=== PATIENT | female | born 1980 | race Caucasian/White ===

== ENCOUNTER → 2018-01-20 08:33 | Outpatient (CLI) | payer OTHER, MEDICAID, SELFPAY ==
[2018-01-20 09:15] LABS: Add Manual Diff / Slide Review NO; Basophils Percent Auto 0.4 % (0-2); Eosinophils Percent Auto 1.4 % (2-4); Hematocrit 41.7 % (36-46); Lymphocytes Percent Auto 27.7 % (25-40); Mean Corpuscular HGB Conc 33.7 % (30-36); Mean Corpuscular Volume 80.3 fL (80-100); Monocytes Percent Auto 10.1 % (3-14); Neutrophils Absolute Auto 3100 /uL (3000-5900); Neutrophils Percent Auto 60.4 % (50-75); Platelet Count 243 X10^3/uL (150-400); Red Blood Cell Count 5.19 X10^6/uL (4.0-5.2); Red Cell Distribution Width 12.6 % (11.6-14.8); White Blood Cell Count 5.1 X10^3/uL (4.5-11.0)
[2018-01-20 09:54] LABS: Alanine Aminotransferase 30 IU/L (9-52); Albumin 4.5 g/dL (3.5-5.0); Albumin Globulin Ratio 1.5 (1.0-2.8); Alkaline Phosphatase 47 U/L (38-126); Aspartate Aminotransferase 30 IU/L (14-36); BUN Creatinine Ratio 18.8 (6-22); Blood Urea Nitrogen 15 mg/dL (7-17); Calcium 9.8 mg/dL (8.4-10.2); Carbon Dioxide 25 mmol/L (22-32); Chloride 103 mmol/L (98-107); Cholesterol 170 mg/dL (140-199); Estimated Glomerular Filt Rate > 60.0 mL/min (>60); Globulin 3.1 g/dL (1.7-4.1); Glucose 85 mg/dL (70-100); HDL Cholesterol 65 mg/dL (40-60); HEMOLYSIS 16 (0-50); LDL Cholesterol Calculated 93 mg/dL (<100); Potassium 4.2 mmol/L (3.4-5.1); Sodium 143 mmol/L (137-145); Total Protein 7.6 g/dL (6.3-8.2); Triglycerides 61 mg/dL (35-150)
[2018-01-20 10:09] LABS: Free T4, Direct Thyroxine 1.38 ng/dL (0.78-2.19)
[2018-01-20 10:23] LABS: Thyroid Stimulating Hormone 1.81 uIU/mL (0.47-4.68)
== END ==
PROVIDERS: Family Provider Family Medicine; PCP Family Medicine
DX: R53.83 Other fatigue (principal)
CPT/HCPCS: 36415; 80053; 80061; 84439; 84443; 85025

== ENCOUNTER → 2018-01-25 08:45 | Outpatient (CLI) | payer OTHER, MEDICAID, SELFPAY ==
[2018-01-25 10:46] LABS: Follicle Stimulating Hormone 3.55 mIU/mL
[2018-01-25 10:48] LABS: Luteinizing Hormone 2.94 mIU/mL
[2018-01-26 18:04] LABS: Inhibin B < 10 pg/mL
== END ==
PROVIDERS: Family Provider Family Medicine; PCP Family Medicine
DX: N91.5 Oligomenorrhea, unspecified (principal)
CPT/HCPCS: 36415; 82397; 83001; 83002

== ENCOUNTER 2018-06-22 14:56 | Emergency (ER) | payer OTHER, MEDICAID, SELFPAY ==
[2018-06-22 15:01] VITALS: BP 131/73; PULSE 88; RESP 15; TEMP 36.9; O2SAT 100; BMI 19.0
--- NOTE | 2018-06-22 15:39 | ED.ANXIETY ---
HPI - Anxiety <DILSHAD Gresham - Last Filed: 06/22/18 18:04> General Chief Complaint: Anxiety Stated Complaint: panic attack Time Seen by Provider: 06/22/18 15:25 Source: patient Mode of arrival: ambulatory Limitations: no limitations History of Present Illness HPI narrative: pt here saying she is under a lot of stress at home, going thru divorce with custody [place] and her spouse has issues with drinking, feels overwhelmed, trouble sleeping, trouble eating, doesn't feel like working out even though going to the gym helps with stress, gets angry easy, and gets upset over things that would normally not upset her, took x2 of her mom's ativan, which helped, denies any issues with depression, suicide thoughts, harm to self or others, denies any drinking or substance abuse, said she called her pcp and he told her to come to ER for meds to help her MD complaint: anxiety Onset (ago): month(s) (few) Symptoms: other Quality: constant History of similar episodes: No Provoking factors: emotional stress Relieving factors: medication Exacerbating factors: other Associated symptoms: denies other symptoms Related Data Home Medications Medication Instructions Recorded Confirmed Little Yellow Pill 1 dose PO DIRECTED 06/22/18 06/23/18 Probiotic 1 cap PO DAILY 06/22/18 06/23/18 Vitamin D3 1 cap PO DAILY 06/22/18 06/23/18 amino acids [Amino Acid] 1 cap PO DAILY 06/22/18 06/23/18 Previous Rx's Medication Instructions Recorded lorazepam [Ativan] 0.25 mg PO BID-TID PRN #20 tab 06/22/18 Allergies Allergy/AdvReac Type Severity Reaction Status Date / Time Sulfa (Sulfonamide Allergy Mild Verified 06/23/18 15:30 Antibiotics) [SULFA (SULFONAMIDE ANTIBIOTICS)] sulfamethoxazole Allergy Mild Verified 06/23/18 15:30 [SULFAMETHOXAZOLE] trimethoprim [TRIMETHOPRIM] Allergy Mild Verified 06/23/18 15:30 Review of Systems <DILSHAD Gresham - Last Filed: 06/22/18 18:04> Review of Systems All systems reviewed & are unremarkable except as noted in HPI and below Constitutional Reports as per HPI Eyes Denies change in vision, Denies eye discharge, Denies irritation and Denies loss of vision ENT Ears, Nose, Mouth, and Throat: Denies change in voice, Denies neck pain and Denies sore throat Cardiovascular Denies chest pain, Denies irregular heart rhythm, Denies lightheadedness, Denies palpitations, Denies dyspnea, Denies dyspnea on exertion and Denies orthopnea Respiratory Denies cough, Denies dyspnea, Denies dyspnea on exertion and Denies wheezing Gastrointestinal Gastrointestinal: Denies abdominal pain, Denies change in bowel habits, Denies diarrhea, Denies nausea and Denies vomiting Genitourinary Denies hematuria, Denies flank pain, Denies urinary incontinence and Denies urinary urgency Musculoskeletal Denies neck pain Integumentary/Breasts Denies pruritus, Denies erythema, Denies rash and Denies wounds Neurologic Reports behavioral changes, Denies confusion and Denies loss of vision Psychiatric Reports abnormal sleep pattern, Reports anxiety, Reports behavioral changes, Reports change in appetite, Denies confusion, Denies depression, Reports difficulty concentrating, Reports irritability, Reports mood swings, Reports panic attacks, Denies homicidal ideation and Denies suicidal ideation Endocrine Denies palpitations Hematologic/Lymphatic Denies easy bruising Allergic/Immunologic Denies wheezing Exam <DILSHAD Gresham - Last Filed: 06/22/18 18:04> Initial Vital Signs Initial Vital Signs: Vital Signs Temperature 98.5 F 06/22/18 15:01 Pulse Rate 88 06/22/18 15:01 Respiratory Rate 15 06/22/18 15:01 Blood Pressure 131/73 06/22/18 15:01 Pulse Oximetry 100 06/22/18 15:01 Const General: cooperative, healthy appearing, comfortable, well developed and well groomed Nutritional Appearance: average body habitus Orientation: alert, awake and oriented x3 [facility] Head: normal to inspection and normocephalic Ears: hearing grossly normal bilaterally, external ears normal, TM's normal bilaterally and mastoids normal Nose: external nose normal and nares normal Face and sinus: normal facial exam, sinuses nontender and face symmetric Mouth: oral mucosae normal, lip normal, tongue normal, oropharynx normal and moist mucous membranes Teeth and gingiva: dentition normal and gingiva normal Throat: posterior oropharynx normal, tonsils normal and uvula midline Eyes General: appearance normal, both eyes and all related structures Visual Romero: normal visual romero by confrontation Eyelids: eyelids normal Conjunctivae: conjunctivae normal Sclera: sclerae normal Pupils: PERRL EOM: EOM intact bilaterally Neck Neck: normal visual inspection, full ROM, no meningeal signs, trachea midline, supple and No lymphadenopathy Chest Chest: normal inspection of the chest Resp Effort & Inspection: normal respiratory effort and able to speak in complete sentences Auscultation: clear to auscultation bilaterally Cardio Rate: regular rate Rhythm: regular rhythm Heart Sounds: S1 normal and S2 normal Back/Spine/Pelvis Cervical Spine: cervical ROM normal Thoracic/Lumbar Spine: thoraco-lumbar ROM normal Skin General: no rashes or lesions noted, elasticity normal, turgor normal and dry skin Neuro General: alert, awake, oriented x3 and meningeal signs present Cognition: normal cognition Speech: speech normal Gait: normal gait Motor: muscle tone normal throughout Sensory Exam: no sensory deficits noted Extrem General: normal to inspection and full ROM Psych Appearance: grossly normal and well kempt Mental Status: mental status grossly normal Speech and Movement: speech and movement normal Mood: congruent mood Affect: normal affect Attitude: cooperative Thought Process: normal Thought Content: normal Judgment: judgment good <Jess Stephens DO - Last Filed: 06/23/18 21:22> Initial Vital Signs Initial Vital Signs: Vital Signs Temperature 98.5 F 06/22/18 15:01 Pulse Rate 88 06/22/18 15:01 Respiratory Rate 15 06/22/18 15:01 Blood Pressure 131/73 06/22/18 15:01 Pulse Oximetry 100 06/22/18 15:01 Course <DILSHAD Gresham - Last Filed: 06/22/18 18:04> Course Narrative: tx options discussed and pt would like to try something for anxiety 1635 spoke to pt's pcp, Dr Reyes, and he liked my current plan of care, and said pt has appt with him at 1530 tomorrow Orders Ordered: Discontinued Medications Lorazepam (Ativan) 1 mg IV NOW ONE Stop: 06/22/18 16:09 Last Admin: 06/22/18 16:27 Dose: 1 mg Vital Signs - 8 hr 06/22/18 15:01 06/22/18 15:43 06/22/18 16:28 Temperature 98.5 F Pulse Rate 88 82 81 Respiratory Rate 15 16 16 Blood Pressure 131/73 Blood Pressure [Right Arm] 124/81 121/67 Pulse Oximetry 100 100 100 06/22/18 17:05 Temperature Pulse Rate 92 H Respiratory Rate 22 Blood Pressure 112/62 Blood Pressure [Right Arm] Pulse Oximetry 99 <Jess Stephens DO - Last Filed: 06/23/18 21:22> Orders Ordered: Discontinued Medications Lorazepam (Ativan) 1 mg IV NOW ONE Stop: 06/22/18 16:09 Last Admin: 06/22/18 16:27 Dose: 1 mg Vital Signs - 8 hr 06/22/18 15:01 06/22/18 15:43 06/22/18 16:28 Temperature 98.5 F Pulse Rate 88 82 81 Respiratory Rate 15 16 16 Blood Pressure 131/73 Blood Pressure [Right Arm] 124/81 121/67 Pulse Oximetry 100 100 100 06/22/18 17:05 Temperature Pulse Rate 92 H Respiratory Rate 22 Blood Pressure 112/62 Blood Pressure [Right Arm] Pulse Oximetry 99 MDM - Anxiety <DILSHAD Gresham - Last Filed: 06/22/18 18:04> Differential Diagnosis Differential diagnosis: Likely hyperventilation, panic disorder, acute anxiety and other Lab Data Attestation: I reviewed the patient's lab results. Result diagrams: 06/22/18 15:50 06/22/18 15:50 Lab Results 06/22/18 06/22/18 Range/Units 15:50 15:50 WBC 7.8 (4.5-11.0) X10^3/uL RBC 5.11 (4.0-5.2) X10^6/uL Hgb 13.8 (12.0-16.0) g/dL Hct 40.9 (36-46) % MCV 80.1 (80-100) fL MCH 26.9 (26-34) PG MCHC 33.6 (30-36) % RDW 13.7 (11.6-14.8) % Plt Count 263 (150-400) X10^3/uL Neut % (Auto) 73.1 (50-75) % Lymph % (Auto) 20.4 L (25-40) % Saunders % (Auto) 5.4 (3-14) % Eos % (Auto) 0.7 L (2-4) % Baso % (Auto) 0.4 (0-2) % Neut # (Auto) 5700 (1836-0130) /uL Sodium 142 (137-145) mmol/L Potassium 4.3 (3.4-5.1) mmol/L Chloride 107 (98-107) mmol/L Carbon Dioxide 23 (22-32) mmol/L BUN 12 (7-17) mg/dL Creatinine 0.60 (0.52-1.04) mg/dL Estimated GFR > 60.0 (>60) mL/min BUN/Creatinine Ratio 20.0 (6-22) Glucose 86 (70-100) mg/dL Calcium 9.1 (8.4-10.2) mg/dL Total Bilirubin 0.4 (0.2-1.3) mg/dL AST 25 (14-36) IU/L ALT 25 (9-52) IU/L Alkaline Phosphatase 50 (38-126) U/L Total Creatine Kinase 41 (30-135) U/L CK-MB (CK-2) TNP CK-MB (CK-2) Rel Index TNP Troponin I < 0.012 (0.01-0.034) ng/mL Total Protein 7.4 (6.3-8.2) g/dL Albumin 4.5 (3.5-5.0) g/dL Globulin 2.9 (1.7-4.1) g/dL Albumin/Globulin Ratio 1.6 (1.0-2.8) Lipase 85 (23-300) U/L <Jess Stephens, DO - Last Filed: 06/23/18 21:22> Lab Data Lab Results 06/22/18 06/22/18 Range/Units 15:50 15:50 WBC 7.8 (4.5-11.0) X10^3/uL RBC 5.11 (4.0-5.2) X10^6/uL Hgb 13.8 (12.0-16.0) g/dL Hct 40.9 (36-46) % MCV 80.1 (80-100) fL MCH 26.9 (26-34) PG MCHC 33.6 (30-36) % RDW 13.7 (11.6-14.8) % Plt Count 263 (150-400) X10^3/uL Neut % (Auto) 73.1 (50-75) % Lymph % (Auto) 20.4 L (25-40) % Saunders % (Auto) 5.4 (3-14) % Eos % (Auto) 0.7 L (2-4) % Baso % (Auto) 0.4 (0-2) % Neut # (Auto) 5700 (3414-6467) /uL Sodium 142 (137-145) mmol/L Potassium 4.3 (3.4-5.1) mmol/L Chloride 107 (98-107) mmol/L Carbon Dioxide 23 (22-32) mmol/L BUN 12 (7-17) mg/dL Creatinine 0.60 (0.52-1.04) mg/dL Estimated GFR > 60.0 (>60) mL/min BUN/Creatinine Ratio 20.0 (6-22) Glucose 86 (70-100) mg/dL Calcium 9.1 (8.4-10.2) mg/dL Total Bilirubin 0.4 (0.2-1.3) mg/dL AST 25 (14-36) IU/L ALT 25 (9-52) IU/L Alkaline Phosphatase 50 (38-126) U/L Total Creatine Kinase 41 (30-135) U/L CK-MB (CK-2) TNP CK-MB (CK-2) Rel Index TNP Troponin I < 0.012 (0.01-0.034) ng/mL Total Protein 7.4 (6.3-8.2) g/dL Albumin 4.5 (3.5-5.0) g/dL Globulin 2.9 (1.7-4.1) g/dL Albumin/Globulin Ratio 1.6 (1.0-2.8) Lipase 85 (23-300) U/L Discharge Plan Departure Patient Disposition: Home Clinical Impression: Acute anxiety Discharge Date/Time: 06/22/18 17:06 Interventions: ED Discharge Assessment Last Done: 06/22/18 17:05 Instructions: DI for Anxiety -- Adult Prescriptions: New lorazepam [Ativan] 0.5 mg tablet 0.25 mg PO BID-TID PRN (Reason: anxiety) Qty: 20 RF: 0 No Action amino acids [Amino Acid] Capsule 1 cap PO DAILY RF: 0 Little Yellow Pill 1 dose PO DIRECTED RF: 0 Probiotic 1 cap PO DAILY RF: 0 Vitamin D3 1 cap PO DAILY RF: 0 Referrals: Ted Reyes MD [Primary Care Provider] - (Tomorrow as scheduled at 1530) <Jess Stephens DO - Last Filed: 06/23/18 21:22> Cosign ED Attending Cosignature Attestation: I was immediately available in the department for consultation. This documentation has been reviewed and I agree with assessment and plan. Supervised by Jess Stephens DO
--- NOTE | 2018-06-22 15:42 | PC.NURSE ---
states, has been going thru step child custody for months, intermittent anxiety attact wth bilateral arms numbness, feeling tired for months, not sleeping, denies fever,chills,cough,vomiting or diarrhea. cooperative and tearful, mother at bs.
[2018-06-22 15:43] VITALS: BP 124/81; PULSE 82; RESP 16; O2SAT 100
--- NOTE | 2018-06-22 15:55 | DI.RAD.S_ITS ---
PROCEDURE: XR CHEST 1V INDICATIONS: severe anxiety, hx of svt TECHNIQUE: One view of the chest was acquired. COMPARISON: None. FINDINGS: Surgical changes and devices: None. Lungs and pleura: No pleural effusions or pneumothorax. Lungs are clear. Mediastinum: Mediastinal contours appear normal. Heart size is normal. Bones and chest wall: No suspicious bony lesions. Overlying soft tissues appear unremarkable. IMPRESSION: No acute pulmonary process. Dictated by: Twyla Valle M.D. on 06/22/2018 at 16:34 Approved by: Twyla Valle M.D. on 06/22/2018 at 16:35
[2018-06-22 16:00] LABS: Add Manual Diff / Slide Review NO; Basophils Percent Auto 0.4 % (0-2); Eosinophils Percent Auto 0.7 % (2-4); Hematocrit 40.9 % (36-46); Hemoglobin 13.8 g/dL (12.0-16.0); Lymphocytes Percent Auto 20.4 % (25-40); Mean Corpuscular HGB Conc 33.6 % (30-36); Mean Corpuscular Hemoglobin 26.9 PG (26-34); Mean Corpuscular Volume 80.1 fL (80-100); Monocytes Percent Auto 5.4 % (3-14); Neutrophils Absolute Auto 5700 /uL (3000-5900); Neutrophils Percent Auto 73.1 % (50-75); Platelet Count 263 X10^3/uL (150-400); Red Blood Cell Count 5.11 X10^6/uL (4.0-5.2); Red Cell Distribution Width 13.7 % (11.6-14.8); White Blood Cell Count 7.8 X10^3/uL (4.5-11.0)
[2018-06-22 16:08] LABS: Alanine Aminotransferase 25 IU/L (9-52); Albumin 4.5 g/dL (3.5-5.0); Albumin Globulin Ratio 1.6 (1.0-2.8); Alkaline Phosphatase 50 U/L (38-126); Aspartate Aminotransferase 25 IU/L (14-36); Bilirubin Total 0.4 mg/dL (0.2-1.3); Blood Urea Nitrogen 12 mg/dL (7-17); Calcium 9.1 mg/dL (8.4-10.2); Carbon Dioxide 23 mmol/L (22-32); Chloride 107 mmol/L (98-107); Estimated Glomerular Filt Rate > 60.0 mL/min (>60); Globulin 2.9 g/dL (1.7-4.1); Glucose 86 mg/dL (70-100); HEMOLYSIS < 15 (0-50); Lipase 85 U/L (23-300); Potassium 4.3 mmol/L (3.4-5.1); Sodium 142 mmol/L (137-145); Total Protein 7.4 g/dL (6.3-8.2)
[2018-06-22 16:09] LABS: Creatine Kinase 41 U/L (30-135)
[2018-06-22 16:20] LABS: Troponin I < 0.012 ng/mL (0.01-0.034)
[2018-06-22] MEDS: LORazepam 2 MG/ML SYRINGE 1 MG IV (16:27)
[2018-06-22 16:28] VITALS: BP 121/67; PULSE 81; RESP 16; O2SAT 100
[2018-06-22 17:05] VITALS: BP 112/62; PULSE 92; RESP 22; O2SAT 99
== END 2018-06-22 17:06 | disposition home or self-care (01) ==
PROVIDERS: Emergency Provider Nurse Practitioner; Family Provider Family Medicine; PCP Family Medicine
DX: F41.9 Anxiety disorder, unspecified (principal)
CPT/HCPCS: 36591; 71045; 80053; 82550; 83690; 84484; 85025; 93005; 96374; 99282; 99285; J2060

== ENCOUNTER → 2019-01-27 11:30 | Outpatient (CLI) | payer OTHER, MEDICAID, SELFPAY ==
[2019-01-27 13:15] LABS: Thyroid Stimulating Hormone 0.81 uIU/mL (0.47-4.68)
[2019-01-27 15:05] LABS: Follicle Stimulating Hormone 3.19 mIU/mL; Luteinizing Hormone 1.03 mIU/mL
== END ==
PROVIDERS: PCP Family Medicine
DX: N97.0 Female infertility associated with anovulation (principal)
CPT/HCPCS: 36415; 82397; 83001; 83002; 84443

== ENCOUNTER → 2019-09-26 09:14 | Outpatient (CLI) | payer OTHER, MEDICAID, SELFPAY ==
[2019-09-26 10:34] LABS: Free T3, Triiodothyronine Free 3.31 pg/mL (2.77-5.27); Free T4, Direct Thyroxine 0.99 ng/dL (0.78-2.19)
[2019-09-26 10:48] LABS: Thyroid Stimulating Hormone 1.41 uIU/mL (0.47-4.68)
== END ==
PROVIDERS: PCP Family Medicine; Referring Provider Family Medicine; Visit Provider Family Medicine
DX: R79.89 Other specified abnormal findings of blood chemistry (principal)
CPT/HCPCS: 36415; 84439; 84443; 84481

== ENCOUNTER → 2020-05-11 11:24 | Outpatient (CLI) | payer OTHER, MEDICAID, SELFPAY ==
--- NOTE | 2020-05-11 | DI.MG.S_ITS ---
BILATERAL DIGITAL SCREENING MAMMOGRAM 3D/2D WITH CAD WITH AUGMENTATION: 05/11/2020 CLINICAL: Patient presents for routine screening. S/P bilateral augmentation. Family history of breast cancer. Comparison is made to exam dated: 02/22/2014 [facility]. The tissue of both breasts is heterogeneously dense. This may lower the sensitivity of mammography. Current study was also evaluated with a Computer Aided Detection (CAD) system. Bilateral breast implants are present. No significant masses, calcifications, or other findings are seen in either breast. There has been no significant interval change. IMPRESSION: NEGATIVE There is no mammographic evidence of malignancy. A 1 year screening mammogram is recommended. This exam was interpreted at Station ID: [id number]. NOTE: For mammograms, a report in lay terms will be sent to the patient. Approximately 15% of breast malignancies will not be visualized mammographically. In the management of a palpable breast mass, a negative mammogram must not discourage biopsy of a clinically suspicious lesion. Electronically Signed By: Ethan arechiga/prateek:05/11/2020 11:50:53 letter sent: Normal Exam ACR BI-RADS Category 1: Negative 3341F
== END ==
PROVIDERS: PCP Family Medicine; Referring Provider Family Medicine; Visit Provider Family Medicine
DX: Z12.31 Encounter for screening mammogram for malignant neoplasm of breast (principal); Z80.3 Family history of malignant neoplasm of breast; Z98.82 Breast implant status
CPT/HCPCS: 77063; 77067

== ENCOUNTER → 2021-01-28 07:57 | Outpatient (CLI) | payer OTHER, MEDICAID, SELFPAY ==
[2021-01-28 08:48] LABS: Add Manual Diff / Slide Review NO; Basophils Absolute Auto 0 /uL (0-100); Basophils Percent Auto 0.4 % (0-2); Eosinophils Absolute Auto 100 /uL (0-450); Eosinophils Percent Auto 2.5 % (2-4); Hemoglobin 13.8 g/dL (12.0-16.0); Lymphocytes Absolute Auto 1200 /uL (1100-4500); Lymphocytes Percent Auto 23.1 % (25-40); Mean Corpuscular HGB Conc 32.9 % (30-36); Mean Corpuscular Hemoglobin 26.3 PG (26-34); Mean Corpuscular Volume 80.1 fL (80-100); Monocytes Absolute Auto 500 /uL (0-900); Neutrophils Absolute Auto 3300 /uL (1500-7000); Platelet Count 317 X10^3/uL (150-400); Red Blood Cell Count 5.24 X10^6/uL (4.0-5.2); Red Cell Distribution Width 14.2 % (11.6-14.8); White Blood Cell Count 5.2 X10^3/uL (4.5-11.0)
[2021-01-28 08:58] LABS: Alanine Aminotransferase 40 IU/L (<35); Albumin 4.2 g/dL (3.5-5.0); Albumin Globulin Ratio 1.4 (1.0-2.8); Alkaline Phosphatase 59 U/L (38-126); Aspartate Aminotransferase 51 IU/L (14-36); BUN Creatinine Ratio 19.7 (6-22); Bilirubin Total 0.8 mg/dL (0.2-1.3); Blood Urea Nitrogen 13 mg/dL (7-17); Calcium 9.3 mg/dL (8.4-10.2); Carbon Dioxide 27 mmol/L (22-32); Chloride 102 mmol/L (98-107); Cholesterol 207 mg/dL (140-199); Estimated Glomerular Filt Rate > 60.0 mL/min (>60); Globulin 3.1 g/dL (1.7-4.1); Glucose 86 mg/dL (70-100); HDL Cholesterol 71 mg/dL (40-60); HEMOLYSIS < 15 (0-50); LDL Cholesterol Calculated 117 mg/dL (<100); Potassium 3.6 mmol/L (3.4-5.1); Sodium 137 mmol/L (137-145); Total Protein 7.3 g/dL (6.3-8.2); Triglycerides 96 mg/dL (35-150)
[2021-01-28 09:45] LABS: Vitamin B12 961 pg/mL (239-931)
[2021-01-28 09:47] LABS: Free T3, Triiodothyronine Free 3.76 pg/mL (2.77-5.27); Free T4, Direct Thyroxine 1.25 ng/dL (0.78-2.19)
[2021-01-28 09:54] LABS: Vitamin D 25 Hydroxy (D3) 46.1 ng/mL (30.0-100.0)
[2021-01-28 10:01] LABS: Thyroid Stimulating Hormone 1.47 uIU/mL (0.47-4.68)
== END ==
PROVIDERS: PCP Family Medicine; Referring Provider Family Medicine; Visit Provider Family Medicine
DX: F32.9 Major depressive disorder, single episode, unspecified (principal); F41.9 Anxiety disorder, unspecified; R53.83 Other fatigue; R63.5 Abnormal weight gain; Z13.21 Encounter for screening for nutritional disorder; Z13.29 Encounter for screening for other suspected endocrine disorder
CPT/HCPCS: 36415; 80053; 80061; 82306; 82607; 84439; 84443; 84481; 85025

== ENCOUNTER → 2022-05-20 07:40 | Outpatient (CLI) | payer OTHER, MEDICAID, SELFPAY ==
--- NOTE | 2022-05-20 07:42 | DI.MG.S_ITS ---
BILATERAL DIGITAL SCREENING MAMMOGRAM 3D/2D WITH CAD WITH AUGMENTATION: 05/20/2022 CLINICAL: Routine screening. Family history of breast cancer. Comparison is made to exams dated: 05/11/2020 mammogram and 02/22/2014 mammogram - [facility]. Both breasts are heterogeneously dense, which may obscure small masses (category c / 51-75% glandular tissue). Current study was also evaluated with a Computer Aided Detection (CAD) system. Bilateral breast implants are present. No significant masses, calcifications, or other findings are seen in either breast. There has been no significant interval change. IMPRESSION: BENIGN There is no mammographic evidence of malignancy. A 1 year screening mammogram is recommended. This exam was interpreted at Station ID: [id number]. NOTE: For mammograms, a report in lay terms will be sent to the patient. Approximately 15% of breast malignancies will not be visualized mammographically. In the management of a palpable breast mass, a negative mammogram must not discourage biopsy of a clinically suspicious lesion. Electronically Signed By: Brant de los santos/prateek:05/20/2022 09:08:37 copy to: PROMISE HARRISON letter sent: Normal Exam ACR BI-RADS Category 2: Benign Finding(s) 3342F
== END ==
PROVIDERS: PCP Family Medicine; Referring Provider Family Medicine; Visit Provider Family Medicine
DX: Z12.31 Encounter for screening mammogram for malignant neoplasm of breast (principal); Z80.3 Family history of malignant neoplasm of breast
CPT/HCPCS: 77063; 77067

== ENCOUNTER → 2023-05-28 08:15 | Outpatient (CLI) | payer OTHER, SELFPAY ==
--- NOTE | 2023-05-28 | DI.MG.S_ITS ---
BILATERAL DIGITAL SCREENING MAMMOGRAM 3D/2D WITH CAD WITH AUGMENTATION: 05/28/2023 CLINICAL: Routine screening. Family history of breast cancer. Comparison is made to exams dated: 05/20/2022 mammogram, 05/11/2020 mammogram, and 02/22/2014 mammogram - [facility]. Both breasts are heterogeneously dense, which may obscure small masses (category c / 51-75% glandular tissue). Current study was also evaluated with a Computer Aided Detection (CAD) system. Bilateral breast implants are present. No significant masses, calcifications, or other findings are seen in either breast. There has been no significant interval change. IMPRESSION: NEGATIVE There is no mammographic evidence of malignancy. A 1 year screening mammogram is recommended. Based on the Tyrer Cuzick model (a risk assessment model) the patient's lifetime risk is 18.5% and her 10 year risk is 3.1%. According to the ACR, ACS, and NCCN guidelines, an annual breast MRI exam along with mammogram is recommended if the patient's lifetime risk is 20% or greater. This exam was interpreted at Station ID: [id number]. NOTE: For mammograms, a report in lay terms will be sent to the patient. Approximately 15% of breast malignancies will not be visualized mammographically. In the management of a palpable breast mass, a negative mammogram must not discourage biopsy of a clinically suspicious lesion. Electronically Signed By: Darien ceballos/prateek:05/28/2023 12:01:44 copy to: PROMISE HARRISON letter sent: Normal Exam ACR BI-RADS Category 1: Negative 3341F
== END ==
PROVIDERS: PCP Family Medicine; Referring Provider Family Medicine; Visit Provider Family Medicine
DX: Z12.31 Encounter for screening mammogram for malignant neoplasm of breast (principal); Z80.3 Family history of malignant neoplasm of breast
CPT/HCPCS: 77063; 77067

== ENCOUNTER → 2023-12-26 08:33 | Outpatient (CLI) | payer OTHER, SELFPAY | PROVIDERS: PCP Family Medicine; Visit Provider Nurse Practitioner Family | DX: R30.0 Dysuria (principal) | CPT/HCPCS: 81002; 87077; 87086; 87186 ==

== ENCOUNTER → 2024-06-09 14:02 | Outpatient (CLI) | payer OTHER, MEDICAID, SELFPAY ==
--- NOTE | 2024-06-09 14:03 | DI.US.S_ITS ---
PROCEDURE: US PELVIC COMPLETE INDICATIONS: Irregular, heavy periods TECHNIQUE: Real-time scanning was performed of the pelvic organs, with image documentation. Additional endovaginal scanning was necessary due to incomplete visualization of the adnexal and endometrial structures by transabdominal scanning. COMPARISON: [facility], US, US PELVIC COMPLETE, 01/27/2019, 11:07. FINDINGS: Uterus: Uterus is anteverted and normal in size at 8.6 x 4.6 x 5.5 cm. The myometrium is homogeneous. The endometrium measures 9 mm combined thickness. No uterine fibroids. Ovaries: The right ovary is not visualized. The left ovary measures 3.0 x 1.7 x 2.6 cm, with a calculated ovarian volume of 6.9 cc. Dominant follicle measuring 1.6 cm is noted. Left ovary is normal in appearance. In the right adnexa, there is a 6 x 4.3 x 5 cm heterogeneous lesion. No apparent tissues identified. Other: No pathologic free abdominal or pelvic fluid. IMPRESSION: 1. Lesion in the right adnexa measuring up to 6 cm. Findings may represent a dermoid. Recommend short-term follow-up ultrasound to assess stability or gynecology protocol pelvic MRI for further evaluation. 2. Uterus and left ovary are normal in appearance. We strive to produce accurate, complete, and clear reports of imaging services. To assist us in improving patient care, this report was composed using standard report templates and voice recognition software. Therefore, it may contain abnormal punctuation, insertions and/or omissions. Occasional wrong-word or sound-alike substitutions may occur. Though we review the report and make efforts to correct it, we do recommend that the report be read carefully in proper context to recognize any text inaccuracies. Dictated by: Geo Blanco M.D. on 06/09/2024 at 16:09 Approved by: Geo Blanco M.D. on 06/09/2024 at 16:12
--- NOTE | 2024-06-09 14:04 | DI.MG.S_ITS ---
BILATERAL DIGITAL SCREENING MAMMOGRAM 3D/2D WITH CAD WITH AUGMENTATION: 06/09/2024 CLINICAL: Routine screening. Family history of breast cancer. Comparison is made to exams dated: 05/28/2023 mammogram, 05/20/2022 mammogram, and 05/11/2020 mammogram - [facility]. The breasts are heterogeneously dense, which may obscure small masses (category c / 51-75% glandular tissue). Current study was also evaluated with a Computer Aided Detection (CAD) system. Bilateral breast implants are present. No significant masses, calcifications, or other findings are seen in either breast. There has been no significant interval change. IMPRESSION: NEGATIVE There is no mammographic evidence of malignancy. A 1 year screening mammogram is recommended. Based on the Tyrer Cuzick model (a risk assessment model) the patient's lifetime risk is 18.4% and her 10 year risk is 3.3%. According to the ACR, ACS, and NCCN guidelines, an annual breast MRI exam along with mammogram is recommended if the patient's lifetime risk is 20% or greater. This exam was interpreted at Station ID: [id number]. NOTE: For mammograms, a report in lay terms will be sent to the patient. Approximately 15% of breast malignancies will not be visualized mammographically. In the management of a palpable breast mass, a negative mammogram must not discourage biopsy of a clinically suspicious lesion. Electronically Signed By: Yasmani lozano/prateek:06/10/2024 08:43:13 copy to: PROMISE HARRISON letter sent: Normal Exam ACR BI-RADS Category 1: Negative
== END ==
LOC: MAMMO 14:03
PROVIDERS: PCP Family Medicine; Referring Provider Obstetrics & Gynecology; Visit Provider Obstetrics & Gynecology
DX: Z12.31 Encounter for screening mammogram for malignant neoplasm of breast (principal); Z80.3 Family history of malignant neoplasm of breast; R92.333 Mammographic heterogeneous density, bilateral breasts; N92.4 Excessive bleeding in the premenopausal period; N94.9 Unspecified condition associated with female genital organs and menstrual cycle
CPT/HCPCS: 76830; 76856; 77063; 77067

== ENCOUNTER → 2024-06-16 14:51 | Outpatient (CLI) | payer OTHER, MEDICAID, SELFPAY ==
[2024-06-16 16:19] LABS: Lactate Dehydrogenase 197 U/L (120-246)
[2024-06-16 16:50] LABS: Cancer Antigen 125 19.6 U/mL (0-35); Carcinoembryonic Antigen 0.4 ng/mL (0.1-3.0)
[2024-06-18 07:36] LABS: Alpha Fetoprotein 5.2 ng/mL (0.0-6.4)
[2024-06-20 10:36] LABS: Human Epididymis Prot 4 55.4 pmol/L (0.0-63.6)
== END ==
PROVIDERS: PCP Family Medicine; Referring Provider Obstetrics & Gynecology; Visit Provider Obstetrics & Gynecology
DX: N94.89 Other specified conditions associated with female genital organs and menstrual cycle (principal); Z11.51 Encounter for screening for human papillomavirus (HPV); N92.4 Excessive bleeding in the premenopausal period; Z12.4 Encounter for screening for malignant neoplasm of cervix
CPT/HCPCS: 36415; 82105; 82378; 83615; 86304; 86305

== ENCOUNTER → 2024-06-17 07:26 | Outpatient (CLI) | payer OTHER, MEDICAID, SELFPAY ==
--- NOTE | 2024-06-17 07:27 | DI.MRI.S_ITS ---
PROCEDURE: MR PELVIS WO/W CON INDICATIONS: Right adnexal mass r/u rt ovarian neoplasm TECHNIQUE: Coronal HASTE, sagittal breath-hold T2 FSE; axial T1 FSE with and without fat saturation through the pelvis. Optional long- and short-axis uterine nonbreath-hold T2 FSE through the uterus. Sagittal or axial dynamic VIBE during administration of contrast. Post-contrast axial or coronal VIBE/2-D FLASH with fat saturation from the iliac crests to the symphysis. Optional diffusion weighted imaging and ADC may be performed. COMPARISON: [facility], , PELVIC COMPLETE, 06/09/2024, 14:30. FINDINGS: Image quality: Diagnostic Lower abdomen: No bowel obstruction the lower abdomen. No pathologic ascites. Bladder: Under distended Reproductive organs: Endometrium measures 1.1 cm. Possible arcuate configuration of the uterus incidentally noted. Junctional zone is within normal limits at 9 mm. Nabothian cysts are present in the cervix. Suspect left corpus luteum cyst measuring 2.2 cm. Other small follicles are present. Right ovarian dermoid cyst is present, containing macroscopic fat, complex internal debris, and internal tissue measuring up to 5.3 x 3.9 x 4.4 cm. Rectum: Unremarkable, [id number] fecal loading. Small amount pelvic free fluid. Vessels and lymph nodes: No aneurysmal vessel identified. No pathologic lymph nodes by size criteria Prominent left adnexal veins. Pelvic wall: Unremarkable Bones: Unremarkable IMPRESSION: Right ovarian lesion is compatible with a dermoid cyst measuring up to 5.3 cm. Gynecologic follow-up is suggested. Follow-up imaging is recommended if no intervention is pursued. 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 Prominent adnexal veins on the left, sometimes seen with pelvic congestion syndrome. Dictated by: Brant Nazario M.D. on 06/17/2024 at 10:06 Approved by: Brant Nazario M.D. on 06/17/2024 at 10:13
== END ==
PROVIDERS: PCP Family Medicine; Referring Provider Obstetrics & Gynecology; Visit Provider Obstetrics & Gynecology
DX: N94.89 Other specified conditions associated with female genital organs and menstrual cycle (principal)
CPT/HCPCS: 72197; A9579

== ENCOUNTER → 2025-02-22 07:25 | Outpatient (CLI) | payer OTHER, SELFPAY | PROVIDERS: PCP Family Medicine; Visit Provider Physician Assistant Medical | DX: R30.0 Dysuria (principal) | CPT/HCPCS: 87077; 87086; 87186 ==

== ENCOUNTER 2025-02-24 11:30 | Day surgery (SDC) | payer OTHER, SELFPAY ==
[2025-02-21 10:42] VITALS: BMI 23.8
[2025-02-24] VITALS (10 sets, daily range): BP systolic 100–118; BP diastolic 54–73; PULSE 75–94; RESP 8–20; TEMP 36.1–36.6; O2SAT 99–100; BMI 23.8
--- NOTE | 2025-02-24 | PATH_ITS ---
[facility] Accession Number: [id number] No. of containers..03 Tissue . 01 Material submitted: . PART A: ovary - RIGHT OVARY, TUBE AND DERMOID PART B: endocervix - ENDOCERVICAL CURETTINGS PART C: endometrium - ENDOMETRIAL CURETTINGS . 01 Diagnosis: A. 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 Histologically unremarkable fimbriated fallopian tube. Negative for malignancy. . B. ENDOCERVIX, CURETTAGE: Histologically unremarkable squamous and endocervical tissue. Negative for intraepithelial lesions. . C. ENDOMETRIUM, CURETTAGE: Secretory endometrium. Negative for endometrioid intraepithelial neoplasia and malignancy. [facility] 03/01/2025 1559 Local . 01 Electronically signed: . Stephanie Harmon DO, Pathologist NPI- [id number] . 01 Gross description: . A. Received in formalin, labeled with two identifiers and right ovary, tube, and dermoid, is a tubo-ovarian unit with the tube measuring 5.2 x 0.7 cm and ovary weighing 23 g and measuring 6.5 x 2.9 x 2.5 cm. The tube has violaceous, smooth serosa with cystic structures up to 0.2 cm in greatest dimension filled with cloudy serous fluid. The lumen is stellate and unremarkable. The external surface of the ovary is fontanez to violaceous, smooth, and is inked blue. Sectioning reveals several cystic structures, the largest of which measures 6.9 cm in greatest dimension and contains grumous material and hair with a small amount of adjacent yellow, solid material. The other cysts have thin, smooth edwards measuring up to 1.6 cm in greatest dimension and contain serosanguinous fluid. The ovarian parenchyma is diffusely congested. [employer] sections are submitted as follows: A1: Fallopian tube. A2-A6: Ovary with cyst. B. Received in formalin, labeled with two identifiers and endocervical curetting, are multiple fontanez soft tissue fragments admixed with mucohemorrhagic material received on friable Telfa paper aggregating to 2.5 x 2.4 x 0.3 cm. Filtered and submitted entirely in cassette B1. C. Received in formalin, labeled with two identifiers and endometrial curettings, are multiple fontanez soft tissue fragments admixed with mucohemorrhagic material received on friable Telfa paper aggregating to 2.6 x 2.2 x 0.4 cm. Filtered and submitted entirely in cassette C1. ([id number]) /[facility] 02/25/2025 1134 Local . 01 Pathologist provided ICD-10: D27.0 . 01 CPT . 886608, [id number], [id number] Specimen Comment: A courtesy copy of this report has been sent to [phone] Performed at: [address] [id number] MD Artie Cummings MD Phone: [phone]
[2025-02-24] MEDS: SCOPOLAMINE 1 PATCH TOP (12:13)
--- NOTE | 2025-02-24 12:39 | PM.PREOP ---
Pre-operative Note COVID-19 COVID-19 status: Not tested Interval Note History & Physical reviewed/Exam performed by Physician: Yes Changes to H&P: No
--- NOTE | 2025-02-24 13:17 | SUR.OPER ---
Lithotomy on padded OR bed. [place] Pad Positioner under torso. Head on pillow, arms padded and tucked at sides. purple strap across shoulders. Legs secured in padded yellow fins stirrups.
[2025-02-24] MEDS: BUPIVACAINE 0.5% W/ EPI (PF) 30 ML VIAL INJ (13:25)
--- NOTE | 2025-02-24 14:16 | PM.GYNOP.1 ---
Operative Date/Time/Diagnoses Date of procedure: 02/24/25 Time of procedure: 13:10 Pre-op diagnosis: Right ovarian dermoid Bicornuate uterus Menorrhagia Post-op diagnosis: same Procedure & Clinicians Procedure: Procedures Operation Date: 02/24/25 12:45 Actual Procedure Side Surgeon p Laparoscopy with Right SALPINGO-OOPHERECTOMY, Right Brandt Portillo MD s Hysteroscopy, D&C Not Applicable Brandt Portillo MD Indications: Marquita is a 44-year-old who was diagnosed with a right sided ovarian dermoid noted last year 1st on ultrasound and confirmed with MR. She has been unable to get surgery done to remove the cyst due to work obligations but is rated proceed at this point. In the interim she also continues to have irregular heavy episodes of vaginal bleeding with her menses and is increasingly having symptoms of the perimenopause as well. We had previously discussed possible insertion of a Mirena IUD but at the time of her MR, the imaging suggested the presence of an arcuate uterus which may make it impossible to place a Mirena IUD. She presents today for her scheduled surgery. Surgeon: Brandt Portillo Anesthesia Type: General Operative Notes Findings: The uterus is normal and size and shape by laparoscopic inspection. There are some mature adhesions in the anterior cul-de-sac but otherwise the anterior and posterior cul-de-sacs are unremarkable. The left tube and ovary are normal. The right tube is also normal but the right ovary is enlarged significantly with a dermoid cyst replacing most of the ovarian stroma and abutting the and distorting hilar surface of the ovary. Due to the proximity of the dermoid with the hilar vessels, it was felt imprudent to attempt cystectomy in the presence of a completely normal left ovary therefore the right ovary was removed in toto during the course of the surgery along with the right fallopian tube. The remainder of the abdomen and pelvis were normal to laparoscopic inspection. The endometrial cavity is clearly by cornu it with no focal endometrial lesions for biopsy. Because of the uterine configuration, insertion of a Mirena IUD was felt to be ill advised and therefore the IUD was not inserted. Closure Type: primary Specimen(s): endometrial curettings and other (Endocervical curettings, right tube and ovary) Applied: none Estimated blood loss (mL): 10 Blood products transfused: none Procedure in detail: With the patient under satisfactory general anesthesia in the modified dorsal lithotomy position, the abdomen, perineum, and vagina, were prepped and draped in the usual manner for laparoscopy and hysteroscopy. A pre-surgical safety time-out was then taken in accordance with [facility] OR protocols. The umbilicus was infiltrated with 0.25% Marcaine with epinephrine and a 2.5 cm vertical incision was made in the inferior edge of the umbilicus. The dissection was then carried down to the fascia which was grasped with 2 Anand clamps and incised transversely. Stay sutures of 0 Vicryl were placed at each end of the incision and the peritoneal cavity was entered with the assistance of Metzenbaum scissors. Once the abdominal cavity was entered, a 12 mm Watson cannula was placed through the vaginal defect into the abdominal cavity. The Watson was then secured in place with the stay sutures and the abdomen insufflated after correct placement of the cannula was assured. A 2nd and 3rd 5 mm port were then placed in the left and right mid quadrants after infiltration of the skin and subcutaneous tissues with 0.25% Marcaine with epinephrine. Using a 3 puncture technique the pelvis and abdomen were carefully inspected with the findings as noted previously. Because of the impingement of the dermoid into the hilar vasculature of the right ovary, the decision was made to remove the ovary intact rather than risking significant spillage and bleeding due to the location of the dermoid. Accordingly the right infundibulopelvic ligament was then secured and transected with the PowerSeal device. The PowerSeal was then used to across the mesosalpinx to the cornua where both the utero-ovarian ligament as well as the proximal fallopian tube were coagulated and divided. Once the specimen was from the infundibulopelvic and utero-ovarian ligaments, an Endo-Catch bag was then placed through the umbilical port, the specimen captured, and removed through the umbilical incision without spillage. That is specimen, right ovary and tube, will be sent for pathologic evaluation. The Watson cannula was replaced and the abdomen reinflated. Careful inspection of the pelvis and abdomen revealed no other abnormalities and the pneumoperitoneum was vented. Laparoscopy ports were then removed and the umbilical incision closed with 0 Vicryl interrupted on the fascia. All incisions were then closed with 4-0 Monocryl subcuticular inverted interrupted stitches, skin glue was applied, and appropriate dressings were then applied. Attention was then turned to the hysteroscopic portion of the case. A speculum was inserted in the vagina and the cervix easily visualized. The anterior lip of the cervix was grasped with a single-tooth tenaculum in the endocervical canal was dilated to 7 mm with the Hegar dilators. The hysteroscope was then placed into the uterine cavity and the endometrial cavity itself photographically documented. The presence of a bicornuate uterus was clearly established and the decision was made not to attempt insertion of a Mirena IUD due to the malformation of the endometrial cavity itself. Sharp fractional curettage with ECC and EMC was then performed in the usual manner and separate specimens were submitted for pathologic evaluation. The single-tooth tenaculum was then removed from the cervix and no significant bleeding was noted from the puncture sites. The speculum was then removed from the vagina and the procedure terminated. Patient was then awakened and transferred to the PACU for a period of observation and recovery after having tolerated the procedure well. Complications: none Post-operative Condition: stable Disposition: PACU Plan for aftercare: Routine PACU orders followed by routine postoperative care and follow-up in 2 weeks or as needed.
[2025-02-24] MEDS: ONDANSETRON 4 MG/2 ML INJ IV (15:16)
[2025-02-24] MEDS: OXYCODONE IR 5 MG TABLET PO (15:20)
== END 2025-02-24 16:06 | disposition home or self-care (01) ==
PROVIDERS: PCP Family Medicine; Referring Provider Obstetrics & Gynecology; Visit Provider Obstetrics & Gynecology
PROC: (CPT 58662; principal; 2025-02-24 12:45)
PROC: 0UDB8ZZ Extraction of Endometrium, Via Natural or Artificial Opening Endoscopic (ICD-10-PCS; CPT 58558; 2025-02-24 12:45)
DX: N92.0 Excessive and frequent menstruation with regular cycle (principal); N73.6 Female pelvic peritoneal adhesions (postinfective); Q51.3 Bicornate uterus; D27.0 Benign neoplasm of right ovary
CPT/HCPCS: 58661; 58558; J0330; J1100; J1885; J2250; J2405; J2704; J3010; J3490

== ENCOUNTER → 2025-05-05 07:20 | Outpatient (CLI) | payer OTHER, SELFPAY ==
[2025-05-05 07:46] LABS: Add Manual Diff / Slide Review NO; Hematocrit 43.1 % (36-46); Hemoglobin 14.5 g/dL (12.0-16.0); Lymphocytes Absolute Auto 1600 /uL (1100-4500); Mean Corpuscular HGB Conc 33.7 % (30-36); Mean Corpuscular Hemoglobin 26.9 PG (26-34); Mean Corpuscular Volume 80.0 fL (80-100); Platelet Count 312 X10^3/uL (150-400)
[2025-05-05 08:26] LABS: Alanine Aminotransferase 22 IU/L (<35); Albumin 4.4 g/dL (3.5-5.0); Albumin Globulin Ratio 1.5 (1.0-2.8); Alkaline Phosphatase 61 U/L (38-126); Blood Urea Nitrogen 13 mg/dL (7-17); Calcium 9.6 mg/dL (8.4-10.2); Carbon Dioxide 25 mmol/L (22-32); Chloride 104 mmol/L (98-107); Cholesterol 203 mg/dL (140-199); Estimated Glomerular Filt Rate > 60 mL/min (>60); Globulin 2.9 g/dL (1.7-4.1); Glucose 93 mg/dL (70-99); HDL Cholesterol 86 mg/dL (40-60); HEMOLYSIS < 15 (0-50); Potassium 4.3 mmol/L (3.4-5.1); Sodium 138 mmol/L (137-145); Total Protein 7.3 g/dL (6.3-8.2); Triglycerides 118 mg/dL (35-150)
[2025-05-05 08:41] LABS: Vitamin D 25 Hydroxy (D3) 35.0 ng/mL (30.0-100.0)
[2025-05-05 08:54] LABS: TSH w/ Reflex to FT4 1.11 uIU/mL (0.47-4.68)
== END ==
PROVIDERS: PCP Family Medicine; Referring Provider Family Medicine; Visit Provider Family Medicine
DX: E55.9 Vitamin D deficiency, unspecified (principal); N92.0 Excessive and frequent menstruation with regular cycle; E78.5 Hyperlipidemia, unspecified; Z13.29 Encounter for screening for other suspected endocrine disorder
CPT/HCPCS: 36415; 80053; 80061; 82306; 84443; 85025

== ENCOUNTER → 2025-06-30 10:10 | Outpatient (CLI) | payer OTHER, SELFPAY ==
[2025-07-01 13:10] LABS: Trichomoas vaginalis Negative (Negative)
== END ==
LOC: LAB 10:11
PROVIDERS: PCP Family Medicine; Visit Provider Obstetrics & Gynecology
DX: N89.8 Other specified noninflammatory disorders of vagina (principal)
CPT/HCPCS: 81514